=== PATIENT | male | born 1970 | race Caucasian/White ===

== ENCOUNTER 2022-11-16 13:06 | Outpatient (REF) | payer OTHER, SELFPAY ==
--- NOTE | ~2022-11-16 | XR_ITS ---
EXAMINATION: XR LUMBOSACRAL SPINE CLINICAL INFORMATION: Dorsalgia, unspecified COMPARISON: None available. TECHNIQUE: 4 views of the lumbar spine, inclusive of flexion and extension views, were obtained. FINDINGS: There are probably small riblets extending off the T12 vertebral body. There are 5 nonrib-bearing lumbar-type vertebral bodies. L5 is a transitional lumbosacral vertebral body with large transverse processes. There is slight anterior wedge compression of the L1 vertebral body. There is disc space narrowing at L1-L2 with large anterior marginal osteophytes. There is multilevel degenerative facet joint disease. There is retrolisthesis of L2 with respect to L3 and L3 respect to L4. This decreases with flexion and is without change on extension. XR/XR lumbar spine 4V min IMPRESSION: 1. Degenerative disc disease at L1-L2. 2. Multilevel degenerative facet joint disease. 3. Retrolisthesis of L2 with respect to L3 and L3 respect to L4, as discussed above.
== END 2022-11-16 13:07 | disposition home or self-care (01) ==
LOC: HO.HOSX 13:06
PROVIDERS: Visit Provider Physician Assistant
DX: M54.9 Dorsalgia, unspecified (principal)
CPT/HCPCS: 72110

== ENCOUNTER 2022-11-16 13:06 | Outpatient (AMB) | payer OTHER, SELFPAY ==
--- NOTE | 2022-11-16 13:23 | A.SPINEOV_ITS ---
Intake Intake Visit Reasons: Back pain Intake Note: Mr. Davis is here today c/o low back pain. MRI done @ [facility]/brought disc. Cutter Machine Required: No Assessment & Plan Assessment & Plan (1) Back pain: Code(s): M54.9 - Dorsalgia, unspecified Plan This is a 52-year-old Urdu gentleman presents to the office today with a chronic low back pain on the left side of his upper lumbar spine. He found Dr. Leggett name on the computer and came in today as a self-referred patient. He tells me that he has had the pain for 30 years. It is aggravated with sitting for any length of time. He is constantly changing positions. And he stands and walks he can move around. He does run often and the symptoms can be aggravated the next day but generally not when he is active. He has also more recently started to experience pain down on the left side of his lower lumbar region as well. He saw Dr. Woodall at [facility] who told him there was nothing more to be done. He has not yet done any physical therapy, injections etc.. He has taken ibuprofen and Tylenol but it does not seem to do much. He has no radicular pain. He took a muscle relaxer as well that did not help him much. PMH: He is otherwise healthy, has been told he has high blood pressure but he thinks it is related to the amount of pain he is in. Social hx: He does not smoke Medications: He takes no regular medications Allergies: None Physical exam: Intact strength and reflexes gait normal Imaging review: Lumbar MRI done at [facility] in July of 2022 compared to images done in June 2020 show mild to moderate degenerative disc disease in the upper lumbar spine. He has what looks like auto fusion of L1-2 and possibly T12-L1. Standing flexion-extension x-rays done here in the office today show a retrolisthesis of 7 mm when he is extending backwards. It also confirms that her appears to be some kind of anterior bridging osteophytes at L1-2 and T12-L1. Impression: This is a 52-year-old gentleman presents to the office today for chronic left-sided upper lumbar back pain that has been bothering him for 30 years and steadily getting worse. He has tried waiting it out, activity modifications, ibuprofen etc.. I showed him his MRI and his x-rays. There is clearly of retrolisthesis shift with extension compared to the MRI which was done in a recumbent position suggesting that this may be the source of his pain. However we discussed the fact that back pain can be very difficult to localize and that it would be helpful to have some kind of cortisone injection in this region the see if it helps the pain. We are going to send him to Dr. Yeboah for an L2-3 epidural. I am also going to have him do 6 weeks of physical therapy. I will see him back in 3 months and we can re-evaluate. I did show Dr. Leggett the films any believes that if the patient tries all these conservative measurements and is absolutely tired of living with the pain he would consider a minimally invasive trans Kambin L2-3 fusion on him. We did discuss the fact that the success rate would be 60-70% and there would be risk of adjacent segment disease down the road. Thank you for allowing us to care for your patient. The total time spent with this visit with this patient was 45 minutes reviewing history, physical exam, lumbar imaging review, and implementation of treatment plan or further diagnostic testing Marcel Leggett MD,PhD [facility] Orders: Orders PT Evaluation and Treatment Today M54.9 - Dorsalgia, unspecified XR lumbar spine 4V min Today M54.9 - Dorsalgia, unspecified Referrals Physiatry Referral M54.9 - Dorsalgia, unspecified Coding Level of Care Code New Pt Level 4 (81298) Diagnoses Back pain M54.9
== END 2022-11-16 13:51 | disposition home or self-care (01) ==
PROVIDERS: Visit Provider Physician Assistant
DX: M54.9 Dorsalgia, unspecified (principal)
CPT/HCPCS: 99204

== ENCOUNTER 2022-12-28 13:00 | Outpatient (RCR) | payer OTHER, SELFPAY ==
--- NOTE | 2022-11-30 14:41 | MHC.PT.EP ---
[facility] [place] Office [place] Office [place] Office [address] [phone] F: [phone] F: [phone] F: [phone] F: [phone] Physical Therapy Plan of Care Date of Evaluation: 11/30/22 Date of Surgery: Diagnosis: Low back pain Assessment: Patient is a 52 year old R handed male who presents with s/s consistent with low back pain, spondylolisthesis L2-L3, dorsalgia. 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 Patient past medical history is unremarkable. Current impairments include pain, posture, ROM, strength, activity tolerance and functional mobility. Functional limitations include decreased ability to walk, stand, sit, sleep, bend, lift, and carry. Patient is motivated with good rehab potential. Skilled PT will address impairments and functional limitations in order to achieve goals. Frequency and Duration: The patient will be seen 2x/week for 5 weeks Short Term Goals: I with HEP - 2 weeks Max pain with sleep, daily activities 06/11 - 3 weeks Perform 45 min standing core stab program without increased pain - 3 weeks Rag Baler Goals: Max pain with daily activities - 5 weeks OSwestry 18% - 5 weeks Able to run/sleep pain free - 5 weeks Treatment Plan: Modalities to reduce pain, spasms and effusion. Manual therapy to restore motion and function. Therapeutic exercise to improve strength and flexibility. Neuromuscular re-education for posture and balance. Therapeutic activities to return to functional activities of daily living. Electronically signed by: Andrea Hernandez, PT Please sign and return to therapist. Thank you for your referral.
--- NOTE | 2023-03-15 09:42 | MHC.PT.DC ---
[facility] [place] Office [place] Office [place] Office [address] [phone] F: [phone] F: [phone] F: [phone] F: [phone] Physical Therapy Discharge Report Diagnosis: Low back pain Date of Surgery: Date of Evaluation: 11/30/22 Date of Discharge: 01/29/23 Treatments to Date: 8 Cancellations to Date: No Shows to Date: Discharge Status: Independent with HEP Discharge Summary: 12/28/22: pt was motivated throughout and compliant. however, his oswestry (46%) is unchanged as is his symptomatic presentation. at this time, the appropriate next step is to refer him back to his MD with an HEP. 12/25/22: pt has been feeling better overall. however, the pain is still present with the same activities in a similar presentation. we will likely continued 1 more visit then d/c to HEP. 12/19/22: pt still has some mid lumbar spine pain after PT. uncertain as to effectiveness of PT in terms of avoiding necessity of surgical intervention. 12/17/22: pt progressed today with program and we added to HEP with instructions to alternate HEP programs. 12/13/22: pt still having significant pain with slight flexion. we updated HEP and progressed program today. good carryover and follows cues well. 12/07/22: pt progressing well with skilled PT for core stab. we have been able to progress each visit so far with good carryover. 12/03/22: progressed with mulrobert strenght progression and core stab. assess response and progress as tolerated. Patient is a 52 year old R handed male who presents with s/s consistent with low back pain, spondylolisthesis L2-L3, dorsalgia. 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 Patient past medical history is unremarkable. Current impairments include pain, posture, ROM, strength, activity tolerance and functional mobility. Functional limitations include decreased ability to walk, stand, sit, sleep, bend, lift, and carry. Patient is motivated with good rehab potential. Skilled PT will address impairments and functional limitations in order to achieve goals. Electronically signed by: Andrea Hernandez, PT Please sign and return to therapist. Thank you for your referral.
== END 2023-03-15 09:43 | disposition home or self-care (01) ==
LOC: HO.PTCHIC 13:00
PROVIDERS: PCP Nurse Practitioner; Visit Provider Physician Assistant
DX: M54.9 Dorsalgia, unspecified (principal)
CPT/HCPCS: 97110; 97112; 97161

== ENCOUNTER → 2023-02-15 15:20 | Outpatient (BNVA) | payer OTHER, SELFPAY | PROVIDERS: Visit Provider Physician Assistant | DX: M54.9 Dorsalgia, unspecified (principal) | CPT/HCPCS: 99212 ==